=== PATIENT | female | born 1990 | race Caucasian/White ===

== ENCOUNTER 2016-08-07 09:58 | Outpatient (CLI) | payer OTHER ==
[2016-08-07 10:53] LABS: BASOPHILS % (AUTO) 0.4 %; HCT - HEMATOCRIT 39.3 % (37.0-47.0); HGB - HEMOGLOBIN 13.4 g/dL (12.0-16.0); LYMPHOCYTES # (AUTO) 1.4 10^3/uL (1.5-3.5); LYMPHOCYTES % (AUTO) 27.8 %; MEAN CORPUSCULAR HEMOGLOBIN 29.5 pg (27.0-31.0); MEAN CORPUSCULAR HGB CONC 34.1 g/dL (32.0-36.0); MEAN CORPUSCULAR VOLUME 86.5 fL (81.0-99.0); MEAN PLATELET VOLUME 8.8 fL (7.9-10.8); MONOCYTES # (AUTO) 0.5 10^3/uL (0.0-1.0); MONOCYTES % (AUTO) 11.1 %; NEUTROPHILS # (AUTO) 2.9 10^3/uL (1.5-6.6); NEUTROPHILS % (AUTO) 59.7 %; RED BLOOD COUNT 4.54 10^6/uL (4.20-5.40); RED CELL DISTRIBUTION WIDTH 13.2 % (12.0-15.0); UNCORRECTED WHITE BLOOD COUNT 4.9 x10^3/uL; WHITE BLOOD COUNT 4.9 x10^3/uL (4.8-10.8)
== END 2016-08-07 09:59 | disposition home or self-care (01) ==
LOC: LAB 09:58
PROVIDERS: ATTEND Internal Medicine
DX: D72.819 Decreased white blood cell count, unspecified (principal)
CPT/HCPCS: 36415; 85025

== ENCOUNTER 2017-12-04 14:32 | Outpatient (CLI) | payer OTHER | END 2017-12-04 14:33 | disposition home or self-care (01) | LOC: LAB 14:32 | PROVIDERS: ATTEND Physician Assistant Medical | DX: Z33.1 Pregnant state, incidental (principal) | CPT/HCPCS: 36415; 84702 ==

== ENCOUNTER 2017-12-16 18:05 | Outpatient (CLI) | payer OTHER ==
--- NOTE | 2017-12-17 14:11 | Ultrasound Report ---
Reason: ENCOUNTER FOR TEST, RESULT POSITIVE Procedure Date: 12/16/2017 Accession Number: [id number] / [id number] Procedure: US - OB First Trimester CPT Code: FULL RESULT: EXAM: FIRST TRIMESTER OBSTETRIC ULTRASOUND (Less than 11 weeks) EXAM DATE: 12/16/2017 06:40 PM. CLINICAL HISTORY: Encounter for test, result positive. LMP: 10/28/2017. COMPARISONS: None. TECHNIQUE: Transabdominal and transvaginal ultrasound examination with static image documentation. CLINICAL DATES: EGA 7 weeks 0 days with FÁTIMA 08/04/2018 based on last menstrual period. ASSESSMENT: Gestational Sac: Single intrauterine. Mean gestational sac diameter: 22 mm. Embryo: CRL (crown-rump length) 7.7 mm = 6 weeks 5 days. Cardiac activity: 169 beats per minute. Yolk sac: 3 mm. Amniotic fluid: Not accurately assessed at this gestational age. Early placenta: Not visible at this gestational age. Other: No perigestational fluid collection demonstrated. MATERNAL STRUCTURES: Uterus: Anteverted/Retroverted. Unremarkable. Cervix: Closed. Right Ovary/Adnexa: The ovary measures 1.1 x 2.4 x 3.3 cm, volume 16.9 cc. Unremarkable. Left Ovary/Adnexa: Not visualized. Free Fluid: None. Other: None. IMPRESSION: 1. Single viable intrauterine at EGA 6 weeks 5 days with FÁTIMA 08/06/2018 based on crown-rump length, which is concordant with clinical dates. 2. Assigned dating is FÁTIMA 08/04/2018 based on last menstrual period. RADIA
== END 2017-12-16 18:06 | disposition home or self-care (01) ==
LOC: DI 18:05
PROVIDERS: ATTEND Registered Nurse
DX: Z32.01 Encounter for pregnancy test, result positive (principal)
CPT/HCPCS: 76801

== ENCOUNTER 2018-01-08 08:00 | Outpatient (CLI) | payer OTHER | END 2018-01-08 23:59 | LOC: LAB.R 08:00 | PROVIDERS: ATTEND Registered Nurse | DX: Z33.1 Pregnant state, incidental (principal) | CPT/HCPCS: 87491; 87591 ==

== ENCOUNTER 2018-01-09 10:24 | Outpatient (CLI) | payer OTHER ==
[2018-01-09 10:49] LABS: BASOPHILS % (AUTO) 0.2 %; EOSINOPHILS % (AUTO) 0.4 %; HGB - HEMOGLOBIN 12.4 g/dL (12.0-16.0); LYMPHOCYTES # (AUTO) 1.1 10^3/uL (1.5-3.5); LYMPHOCYTES % (AUTO) 15.3 %; MEAN CORPUSCULAR HEMOGLOBIN 29.8 pg (27.0-31.0); MEAN CORPUSCULAR HGB CONC 34.1 g/dL (32.0-36.0); MEAN CORPUSCULAR VOLUME 87.5 fL (81.0-99.0); MEAN PLATELET VOLUME 8.6 fL (7.9-10.8); MONOCYTES # (AUTO) 0.6 10^3/uL (0.0-1.0); MONOCYTES % (AUTO) 7.7 %; NEUTROPHILS # (AUTO) 5.5 10^3/uL (1.5-6.6); NEUTROPHILS % (AUTO) 76.4 %; PLT - PLATELET COUNT 189 10^3/uL (130-450); RED BLOOD COUNT 4.18 10^6/uL (4.20-5.40); RED CELL DISTRIBUTION WIDTH 12.9 % (12.0-15.0); WHITE BLOOD COUNT 7.2 x10^3/uL (4.8-10.8)
[2018-01-09 10:53] LABS: BILIRUBIN,URINE NEGATIVE (NEGATIVE); GLUCOSE, URINE (UA) NEGATIVE (NEGATIVE); KETONES,URINE (UA) NEGATIVE (NEGATIVE); LEUKOCYTE ESTERASE, URINE NEGATIVE (NEGATIVE); NITRITE,URINE NEGATIVE (NEGATIVE); OCCULT BLOOD,URINE NEGATIVE (NEGATIVE); PROTEIN,URINE NEGATIVE (NEGATIVE); UROBILINOGEN,URINE 0.2 (NORMAL) E.U./dL (NORMAL)
[2018-01-09 11:08] LABS: CLARITY,URINE CLEAR (CLEAR); RBC,URINE 0-5 /HPF (0-5); SQUAMOUS EPITHELIAL CELL,UR RARE Squamous (<= Few)
[2018-01-09 11:09] LABS: BACTERIA,URINE Rare /HPF (None Seen)
[2018-01-10 14:43] LABS: HEPATITIS B SURFACE ANTIGEN NON-REACTIVE (NON-REACTIVE)
[2018-01-10 14:56] LABS: HEPATITIS C ANTIBODY NON-REACTIVE (NON-REACTIVE)
[2018-01-10 15:22] LABS: HIV AG/AB 4TH GEN NON-REACTIVE (NON-REACTIVE)
== END 2018-01-09 10:25 | disposition home or self-care (01) ==
LOC: LAB 10:24
PROVIDERS: ATTEND Registered Nurse
DX: Z33.1 Pregnant state, incidental (principal)
CPT/HCPCS: 36415; 81001; 81599; 85025; 86592; 86762; 86803; 86850; 86900; 86901; 87086; 87340; 87389; 87491; 87591

== ENCOUNTER 2018-01-31 12:50 | Outpatient (CLI) | payer OTHER | END 2018-01-31 12:51 | disposition home or self-care (01) | LOC: LAB 12:50 | PROVIDERS: ATTEND Nurse Practitioner Obstetrics & Gynecology | DX: Z36.0 Encounter for antenatal screening for chromosomal anomalies (principal) | CPT/HCPCS: 36415; 81599; 84163 ==

== ENCOUNTER 2018-03-03 08:52 | Outpatient (CLI) | payer BC | END 2018-03-03 08:53 | disposition home or self-care (01) | LOC: LAB 08:52 | PROVIDERS: ATTEND Registered Nurse | DX: Z36.0 Encounter for antenatal screening for chromosomal anomalies (principal) | CPT/HCPCS: 36415; 81599; 82105; 82677; 84163; 84702 ==

== ENCOUNTER 2018-03-19 13:29 | Outpatient (CLI) | payer BC, OTHER ==
--- NOTE | 2018-03-20 11:15 | Ultrasound Report ---
Reason: ENCTR FOR OTHER SPECIFIED SCREENING Procedure Date: 03/19/2018 Accession Number: [id number] / [id number] Procedure: US - OB Detailed Eval CPT Code: FULL RESULT: EXAM: COMPLETE OBSTETRICAL ULTRASOUND EXAM DATE: 03/19/2018 03:26 PM. CLINICAL HISTORY: anatomic survey. COMPARISON: None. TECHNIQUE: Real-time sonographic evaluation of the fetus performed by the promos executive producer. Multiple guest experience representative static images were saved for review. DATING: Established EGA 20 weeks 2 days with FÁTIMA 08/04/2018 based on last menstrual period. EGA 20 weeks 3 days with FÁTIMA 08/03/2018 based on current ultrasound. GENERAL EVALUATION Priest . Cardiac activity: 137 bpm. movement: Visualized. Presentation: Cephalic. Placenta: Anterior position. No evidence for previa. Umbilical cord: 3 vessel cord. Central placental cord origin. Amniotic fluid: Subjectively normal. MVP 4.4 cm. BIOMETRY Bi-Parietal Diameter (BPD): 4.8cm, 20 weeks 4 days. Head Circumference (HC): 17.8 cm, 20 weeks 2 days. Abdominal Circumference (AC): 15.1 cm, 20 weeks 2 days. Femur Length (FL): 3.4 cm, 20 weeks 6 days. Estimated Weight: 360 g, 59th percentile for 20 weeks 2 days. ANATOMY The intracranial structures, face/nose/lips, spine, 4 chamber heart and outflow tracts, stomach, abdominal wall, diaphragm, kidneys, bladder, and extremities were visualized and demonstrate no abnormality. Suboptimal imaging of the cord insertion and profile due to positioning. MATERNAL STRUCTURES Uterus: Unremarkable. Cervix: Long and closed. Transabdominal length 3.9 cm. Right ovary/adnexa: Obscured by bowel gas. Left ovary/adnexa: Obscured by bowel gas. Free fluid: None appreciated. IMPRESSION: 1. Priest live intrauterine with gestational age 20 weeks 2 days based on last menstrual period. 2. Estimated weight is within expected limits for assigned dating at the 59th percentile. 3. Normal anatomic survey. No anatomic abnormalities are detected at this time. 4. Suboptimal visualization of the cord insertion and profile due to positioning. Recommend repeat exam to visualize these structures. RADIA
== END 2018-03-19 13:30 | disposition home or self-care (01) ==
LOC: DI 13:29
PROVIDERS: ATTEND Nurse Practitioner Obstetrics & Gynecology
DX: Z36.89 Encounter for other specified antenatal screening (principal)
CPT/HCPCS: 76811

== ENCOUNTER 2018-04-03 13:10 | Outpatient (CLI) | payer BC ==
--- NOTE | 2018-04-04 10:43 | Ultrasound Report ---
Reason: ENCTR FOR OTHER SPECIFIED SCREENING Procedure Date: 04/03/2018 Accession Number: [id number] / [id number] Procedure: US - OB F/U or Repeat CPT Code: FULL RESULT: EXAM: FOLLOW-UP OBSTETRICAL ULTRASOUND EXAM DATE: 04/03/2018 01:28 PM. CLINICAL HISTORY: Completion of anatomy screen for follow-up of cord insertion and profile views. COMPARISON: 03/19/2018. TECHNIQUE: Real-time sonographic evaluation of the fetus performed by the head of digital advertising & integration. Multiple player services representative static images were saved for review. DATING: Established EGA 22 weeks 3 days with FÁTIMA 08/04/2018 based on construction administrative assistant. GENERAL EVALUATION Priest . Cardiac activity: 152 bpm. movement: Visualized. Presentation: Variable. Placenta: Anterior position with normal interface. Amniotic fluid: Normal. ISMA 15.4 cm. MVP 4.6 cm. ANATOMY Profile views are obtained and are normal. The cord insertion is interrogated and is normal. MATERNAL STRUCTURES Closed cervix, 3.9 cm length. IMPRESSION: 1. Priest live intrauterine with gestational age 22 weeks 3 days based on construction administrative assistant. 2. Normal completion of the anatomy survey. RADIA
== END 2018-04-03 13:11 | disposition home or self-care (01) ==
LOC: DI 13:10
PROVIDERS: ATTEND Registered Nurse
DX: Z36.89 Encounter for other specified antenatal screening (principal); Z3A.22 22 weeks gestation of pregnancy
CPT/HCPCS: 76816

== ENCOUNTER 2018-04-29 15:07 | Outpatient (CLI) | payer BC ==
[2018-04-29 16:20] LABS: HGB - HEMOGLOBIN 11.1 g/dL (12.0-16.0); MEAN CORPUSCULAR HEMOGLOBIN 29.9 pg (27.0-31.0); MEAN CORPUSCULAR HGB CONC 33.8 g/dL (32.0-36.0); MEAN CORPUSCULAR VOLUME 88.4 fL (81.0-99.0); MEAN PLATELET VOLUME 9.1 fL (7.9-10.8); RED BLOOD COUNT 3.71 10^6/uL (4.20-5.40); RED CELL DISTRIBUTION WIDTH 13.3 % (12.0-15.0); WHITE BLOOD COUNT 7.9 x10^3/uL (4.8-10.8)
== END 2018-04-29 15:08 | disposition home or self-care (01) ==
LOC: LAB 15:07
PROVIDERS: ATTEND Registered Nurse
DX: Z36.89 Encounter for other specified antenatal screening (principal)
CPT/HCPCS: 36415; 82950; 85027; 86850

== ENCOUNTER 2018-08-31 17:57 | Emergency (ER) | payer OTHER, BC ==
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
[2018-08-31 19:45] VITALS: BP 121/80
== END 2018-08-31 19:44 | disposition home or self-care (01) ==
LOC: ED 17:57
DX: S80.11XA Contusion of right lower leg, initial encounter (principal); S80.12XA Contusion of left lower leg, initial encounter; S90.32XA Contusion of left foot, initial encounter; V43.52XA Car driver injured in collision with other type car in traffic accident, initial encounter; Y92.410 Unspecified street and highway as the place of occurrence of the external cause; O90.89 Other complications of the puerperium, not elsewhere classified
CPT/HCPCS: 99282; 99284

== ENCOUNTER 2019-05-05 14:18 | Outpatient (CLI) | payer BC | END 2019-05-05 14:19 | disposition home or self-care (01) | LOC: COV 14:18 | PROVIDERS: ATTEND Family Medicine | DX: R05 Cough (principal); R50.9 Fever, unspecified | CPT/HCPCS: 81599 ==

== ENCOUNTER 2019-11-06 11:23 | Emergency (ER) | payer OTHER, BC ==
[2019-11-06 11:33] VITALS: BP 125/65
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
== END 2019-11-06 12:36 | disposition home or self-care (01) ==
LOC: ED 11:23
DX: S16.1XXA Strain of muscle, fascia and tendon at neck level, initial encounter (principal); V43.52XA Car driver injured in collision with other type car in traffic accident, initial encounter; Y92.410 Unspecified street and highway as the place of occurrence of the external cause; Y99.0 Civilian activity done for income or pay
CPT/HCPCS: 99282; 99284

== ENCOUNTER 2021-02-02 08:00 | Outpatient (CLI) | payer BC ==
[2021-02-02 13:53] LABS: CORONAVIRUS 229E-RESP PCR NOT DETECTED; CORONAVIRUS HKU1-RESP PCR NOT DETECTED; CORONAVIRUS NL63-RESP PCR NOT DETECTED; CORONAVIRUS OC43-RESP PCR NOT DETECTED; SARS-CoV-2 -RESP PCR PANEL NOT DETECTED
[2021-02-02 13:54] LABS: B. PARAPERTUSSIS- RESP PCR PAN NOT DETECTED; B. PERTUSSIS- RESP PCR PANEL NOT DETECTED; C. PNEUMONIAE- RESP PCR PANEL NOT DETECTED; HUMAN METAPNEUMOVIRUS NOT DETECTED; INFLUENZA A- RESP PCR PANEL NOT DETECTED; INFLUENZA B - RESP PCR PANEL NOT DETECTED; M. PNEUMONIAE- RESP PCR PANEL NOT DETECTED; PARAINFLUENZA VIRUS 1 NOT DETECTED; PARAINFLUENZA VIRUS 2 NOT DETECTED; PARAINFLUENZA VIRUS 3 NOT DETECTED; PARAINFLUENZA VIRUS 4 NOT DETECTED; RHINOVIRUS/ENTEROVIRUS NOT DETECTED; RSV- RESP PCR PANEL NOT DETECTED
== END 2021-02-02 23:59 ==
LOC: LAB 08:00
PROVIDERS: ATTEND Emergency Medicine
DX: J06.9 Acute upper respiratory infection, unspecified (principal); Z20.822 Contact with and (suspected) exposure to COVID-19
CPT/HCPCS: 0202U

== ENCOUNTER 2021-08-15 15:38 | Outpatient (CLI) | payer BC ==
[2021-08-15 16:28] LABS: THYROID STIMULATING HORMONE 0.99 uIU/mL (0.34-5.60)
== END 2021-08-15 15:39 | disposition home or self-care (01) ==
LOC: LAB 15:38
PROVIDERS: ATTEND Obstetrics & Gynecology
DX: N93.9 Abnormal uterine and vaginal bleeding, unspecified (principal)
CPT/HCPCS: 36415; 84144; 84443

== ENCOUNTER 2021-08-18 18:25 | Outpatient (CLI) | payer BC | END 2021-08-18 18:26 | disposition home or self-care (01) | LOC: LAB 18:25 | PROVIDERS: ATTEND Obstetrics & Gynecology | DX: N97.8 Female infertility of other origin (principal) | CPT/HCPCS: 36415; 81220; 82397; 83001; 86015 ==

== ENCOUNTER 2021-09-07 08:43 | Outpatient (CLI) | payer BC | END 2021-09-07 08:44 | disposition home or self-care (01) | LOC: LAB 08:43 | PROVIDERS: ATTEND Obstetrics & Gynecology | DX: N97.8 Female infertility of other origin (principal) | CPT/HCPCS: 84144 ==

== ENCOUNTER 2021-12-13 12:03 | Outpatient (CLI) | payer BC ==
--- NOTE | 2021-12-13 16:28 | XRAY Report ---
PROCEDURE: Cervical Spine Complete INDICATIONS: NECK PAIN ACUTE TECHNIQUE: 5 views of the cervical spine acquired. COMPARISON: None. FINDINGS: Bones: No fractures or dislocations to the T1 level. Oblique images demonstrate no bony foraminal s tenoses. Soft tissues: No prevertebral soft tissue swelling. IMPRESSION: Unremarkable radiographic examination of cervical spine. Reviewed by: Carlitos Hazel MD on 12/13/2021 4:27 PM PDT Approved by: Carlitos Hazel MD on 12/13/2021 4:27 PM PDT Station ID: [id number]
== END 2021-12-13 12:04 | disposition home or self-care (01) ==
LOC: DI 12:03
PROVIDERS: ATTEND Registered Nurse
DX: M54.2 Cervicalgia (principal)

== ENCOUNTER 2022-06-09 08:22 | Outpatient (CLI) | payer BC | END 2022-06-09 08:23 | disposition home or self-care (01) | LOC: LAB 08:22 | PROVIDERS: ATTEND Obstetrics & Gynecology | DX: N97.8 Female infertility of other origin (principal) | CPT/HCPCS: 36415; 84144 ==

== ENCOUNTER 2022-07-01 06:24 | Outpatient (CLI) | payer BC | END 2022-07-01 06:25 | disposition home or self-care (01) | LOC: LAB 06:24 | PROVIDERS: ATTEND Obstetrics & Gynecology | DX: N97.8 Female infertility of other origin (principal) | CPT/HCPCS: 36415; 84144 ==

== ENCOUNTER 2022-09-11 11:08 | Outpatient (CLI) | payer BC ==
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
== END 2022-09-11 11:09 | disposition home or self-care (01) ==
LOC: DI 11:08
PROVIDERS: ATTEND Emergency Medicine
DX: S63.641A Sprain of metacarpophalangeal joint of right thumb, initial encounter (principal)

== ENCOUNTER 2023-01-18 19:58 | Outpatient (CLI) | payer BC ==
[2023-01-18 20:14] LABS: BASOPHILS % (AUTO) 0.3 %; EOSINOPHILS # (AUTO) 0.1 10^3/uL (0.0-0.7); EOSINOPHILS % (AUTO) 1.5 %; HCT - HEMATOCRIT 39.1 % (37.0-47.0); HGB - HEMOGLOBIN 12.5 g/dL (12.0-16.0); LYMPHOCYTES # (AUTO) 2.3 10^3/uL (1.5-3.5); LYMPHOCYTES % (AUTO) 37.9 %; MEAN CORPUSCULAR HEMOGLOBIN 28.9 pg (27.0-31.0); MEAN CORPUSCULAR VOLUME 90.3 fL (81.0-99.0); MEAN PLATELET VOLUME 10.2 fL (7.9-10.8); MONOCYTES # (AUTO) 0.5 10^3/uL (0.0-1.0); MONOCYTES % (AUTO) 9.1 %; PLT - PLATELET COUNT 196 10^3/uL (130-450); RED BLOOD COUNT 4.33 10^6/uL (4.20-5.40); WHITE BLOOD COUNT 5.9 x10^3/uL (4.8-10.8)
[2023-01-18 20:33] LABS: ALBUMIN 4.7 g/dL (3.2-5.5); BILIRUBIN,TOTAL 0.4 mg/dL (0.2-1.0); CALCIUM 9.2 mg/dL (8.5-10.3); CREATININE 0.8 mg/dL (0.6-1.3); POTASSIUM 3.9 mmol/L (3.5-4.5)
== END 2023-01-18 19:59 | disposition home or self-care (01) ==
LOC: LAB 19:58
PROVIDERS: ATTEND Obstetrics & Gynecology Reproductive Endocrinology
DX: Z32.00 Encounter for pregnancy test, result unknown (principal); Z79.899 Other long term (current) drug therapy
CPT/HCPCS: 36415; 80053; 84702; 85025

== ENCOUNTER 2023-01-20 20:08 | Outpatient (CLI) | payer BC | END 2023-01-20 20:09 | disposition home or self-care (01) | LOC: LAB 20:08 | PROVIDERS: ATTEND Obstetrics & Gynecology Reproductive Endocrinology | DX: Z32.00 Encounter for pregnancy test, result unknown (principal) ==

== ENCOUNTER 2023-01-21 09:23 | Outpatient (CLI) | payer BC | END 2023-01-21 09:24 | disposition home or self-care (01) | LOC: LAB 09:23 | PROVIDERS: ATTEND Obstetrics & Gynecology Reproductive Endocrinology | DX: Z32.01 Encounter for pregnancy test, result positive (principal) | CPT/HCPCS: 36415; 84443; 84702 ==

== ENCOUNTER 2023-01-23 19:16 | Outpatient (CLI) | payer BC | END 2023-01-23 19:17 | disposition home or self-care (01) | LOC: LAB 19:16 | PROVIDERS: ATTEND Obstetrics & Gynecology Reproductive Endocrinology | DX: Z32.00 Encounter for pregnancy test, result unknown (principal) | CPT/HCPCS: 36415; 84702 ==

== ENCOUNTER 2023-02-07 17:16 | Outpatient (CLI) | payer BC ==
--- NOTE | 2023-02-08 19:18 | Ultrasound Report ---
PROCEDURE: OB Transvaginal INDICATIONS: SUPERVISION OF PREG W/HISTORY OF INFERTILITY OUTSIDE/PRIOR DATING DATA: Last menstrual period (LMP): 12/22/2022. LMP-based estimated date of delivery (FÁTIMA): 09/28/2023. TECHNIQUE: Real-time transvaginal scanning was performed of the fetus, with image documentation. COMPARISON: None. FINDINGS: Intrauterine gestational sac measuring 1.53 cm, estimated gestational age 6 weeks 2 days. Possible pole measuring is 0.3 cm, estimated gestational age 5 weeks 6 days. A yolk sac is seen. No cardiac motion at this time. Small subchorionic hemorrhage measuring 1.9 x 1.2 x 1.2 cm. Maternal cervical canal: Closed. IMPRESSION: Intrauterine gestational sac. Estimated gestational age 6 weeks 2 days. Possible pole. No cardi ac motion at this time. Small subchorionic hemorrhage. Recommend short-term follow-up OB ultrasound. Reviewed by: Tommie Patel MD on 02/08/2023 7:16 PM PST Approved by: Tommie Patel MD on 02/08/2023 7:16 PM PST Station ID: [id number]
== END 2023-02-07 17:17 | disposition home or self-care (01) ==
LOC: DI 17:16
PROVIDERS: ATTEND Obstetrics & Gynecology Reproductive Endocrinology
DX: O20.8 Other hemorrhage in early pregnancy (principal); O09.00 Supervision of pregnancy with history of infertility, unspecified trimester; Z3A.01 Less than 8 weeks gestation of pregnancy

== ENCOUNTER 2023-03-19 13:20 | Outpatient (CLI) | payer BC | END 2023-03-19 13:21 | disposition home or self-care (01) | LOC: LAB 13:20 | PROVIDERS: ATTEND Obstetrics & Gynecology Reproductive Endocrinology | DX: Z32.00 Encounter for pregnancy test, result unknown (principal) | CPT/HCPCS: 36415; 84702 ==

== ENCOUNTER 2023-05-01 08:53 | Outpatient (CLI) | payer BC | END 2023-05-01 08:54 | disposition home or self-care (01) | LOC: LAB 08:53 | PROVIDERS: ATTEND Obstetrics & Gynecology Reproductive Endocrinology | DX: Z00.00 Encounter for general adult medical examination without abnormal findings (principal) | CPT/HCPCS: 36415; 84146 ==